=== PATIENT | male | born 1985 | race Caucasian/White ===

== ENCOUNTER 2023-11-26 19:23 | Inpatient (IN) | payer BC ==
[2023-11-26 20:02] VITALS: BMI 23.5
[2023-11-26] MEDS ORDERED: MAG HYDROX/AL HYDROX/SIMETH 30 ML UNIT-DOSE CUP PO PRN (21:03)
[2023-11-26] MEDS ORDERED: NICOTINE POLACRILEX 2 MG GUM BUC PRN (21:03)
[2023-11-26] MEDS ORDERED: POLYETHYLENE GLYCOL (HEALTHYLAX) 3350 17 GM PACKET PO PRN (21:03)
[2023-11-26] MEDS ORDERED: BISMUTH SUBSALICYLATE 524 MG/30 ML PO PRN (21:03)
[2023-11-26] MEDS ORDERED: LOPERAMIDE HCL 2 MG CAPSULE PO PRN (21:03)
[2023-11-26] MEDS ORDERED: BENZOCAINE/MENTHOL (CHLORASEPTIC ) LOZENGE MM PRN (21:03)
[2023-11-26] MEDS ORDERED: NALOXONE HCL 0.4 MG/ML VIAL IM PRN (21:03)
[2023-11-26] MEDS ORDERED: MAGNESIUM HYDROX 2400MG/30ML ORAL SUSPENSION 30 ML CUP PO PRN (21:03)
[2023-11-26] MEDS ORDERED: BENZONATATE 200 MG CAPSULE PO PRN (21:03)
[2023-11-26] MEDS ORDERED: IBUPROFEN 400 MG TABLET (FP) PO PRN (21:03)
[2023-11-26] MEDS ORDERED: DICYCLOMINE HCL 10 MG CAPSULE PO PRN (21:03)
[2023-11-26] MEDS ORDERED: NALOXONE HCL (KLOXXADO) 8 MG SPRAY NS PRN (21:03)
[2023-11-26] MEDS ORDERED: guaiFENesin 600 MG TABLET.ER (FP) PO PRN (21:03)
[2023-11-26] MEDS ORDERED: methaDONE HCL 10 MG TABLET (FOR DETOX USE ONLY) ONE (21:26)
[2023-11-26] MEDS: methaDONE HCL 10 MG TABLET (FOR DETOX USE ONLY) PO ONE (21:51)
[2023-11-26] MEDS: cloNIDine HCL 0.1 MG TABLET PO PRN (22:28)
[2023-11-26] MEDS: hydrOXYzine PAMOATE 25 MG CAPSULE (FP) PO PRN (22:28)
[2023-11-26] MEDS: METHOCARBAMOL 500 MG TABLET PO PRN (22:28)
[2023-11-26] MEDS: diazePAM 5 MG TABLET PO SCH (22:28)
[2023-11-26] MEDS: THIAMINE HCL 100 MG TABLET (FP) PO SCH (22:29)
[2023-11-26] MEDS: MELATONIN 5 MG TABLETS PO SCH (22:29)
[2023-11-26] MEDS: ACETAMINOPHEN 325 MG TABLET (FP) PO PRN (22:35)
[2023-11-27] MEDS: ONDANSETRON *ODT* 4 MG TABLET SL PRN (05:31)
[2023-11-27] MEDS: diazePAM 5 MG TABLET PO PRN (06:47)
[2023-11-27] MEDS: IBUPROFEN 600 MG TABLET (FP) PO PRN (06:47)
[2023-11-27] MEDS: NICOTINE 14 MG/24 HOURS TOPICAL PATCH TD SCH (09:08)
[2023-11-27] MEDS: PRENATAL VITAMINS W/ FOLIC ACID TABLET (FP) PO SCH (09:08)
[2023-11-27 11:58] LABS: HEMATOCRIT 40.2 % (35.4-49); HEMOGLOBIN 14.2 GM/dL (11.7-16.9); MCH 32.6 pg (25.7-33.7); MCHC 35.4 g/dl (32.0-35.9); MEAN PLT VOLUME 8.5 fl (7.5-11.1); PLATELET COUNT 256 10^3/uL (134-434); RBC 4.37 M/mm3 (4.00-5.60); RDW 12.9 % (11.9-15.9); WHITE BLOOD COUNT 6.3 K/mm3 (4.0-10.0)
[2023-11-27 12:48] LABS: CHLORIDE 103 mmol/L (98-107); POTASSIUM 4.2 mmol/L (3.5-5.1); SODIUM 140 mmol/L (136-145)
[2023-11-27 12:56] LABS: BLOOD UREA NITROGEN 18.4 mg/dL (7-18)
[2023-11-27 12:57] LABS: ANION GAP 10 mmol/L (4-13); CO2 27 mmol/L (21-32); GLUCOSE,RANDOM 122 mg/dL (74-106)
[2023-11-27 12:59] LABS: SGPT/ALT 43 U/L (13-61)
[2023-11-27 13:00] LABS: CREATININE 0.8 mg/dL (0.55-1.3); SGOT/AST 23 U/L (15-37)
[2023-11-27 13:01] LABS: BILIRUBIN,TOTAL 0.2 mg/dL (0.2-1); TOT PROT 7.2 g/dl (6.4-8.2)
[2023-11-27 13:02] LABS: ALK PHOS 97 U/L (45-117)
[2023-11-27] MEDS: SUVOREXANT 10 MG TABLET PO PRN (22:21)
[2023-11-28] MEDS: diazePAM 5 MG TABLET PO SCH (05:43)
[2023-11-28] MEDS: methaDONE HCL 10 MG TABLET (FOR DETOX USE ONLY) PO ONE (09:16)
[2023-11-29] MEDS: diazePAM 5 MG TABLET PO SCH (05:41)
[2023-11-29] MEDS: cloNIDine HCL 0.1 MG TABLET PO PRN (11:46)
[2023-11-29] MEDS: GABAPENTIN 100 MG CAPSULE PO ONE (18:11)
[2023-11-30] MEDS: diazePAM 5 MG TABLET PO ONE ×3 (06:05→22:08)
[2023-11-30] MEDS: methaDONE HCL 10 MG TABLET (FOR DETOX USE ONLY) PO ONE (09:16)
[2023-11-30] MEDS: GABAPENTIN 100 MG CAPSULE PO ONE (10:43)
[2023-12-01 09:05] VITALS: BP 104/63; PULSE 62; RESP 18; TEMP 97.1
== END 2023-12-01 09:28 | disposition home or self-care (01) | DRG 773 ==
LOC: YASAS 19:23 → Y6N 21:56
PROVIDERS: ADMIT Allergy & Immunology; ATTEND Surgery
PROC: HZ2ZZZZ Detoxification Services for Substance Abuse Treatment (ICD-10-PCS; principal; 2023-11-26)
DX: F11.23 Opioid dependence with withdrawal (principal); F10.230 Alcohol dependence with withdrawal, uncomplicated; F13.230 Sedative, hypnotic or anxiolytic dependence with withdrawal, uncomplicated; F14.20 Cocaine dependence, uncomplicated; F12.20 Cannabis dependence, uncomplicated; F17.210 Nicotine dependence, cigarettes, uncomplicated; F19.282 Other psychoactive substance dependence with psychoactive substance-induced sleep disorder; F19.280 Other psychoactive substance dependence with psychoactive substance-induced anxiety disorder; F19.24 Other psychoactive substance dependence with psychoactive substance-induced mood disorder; Z62.810 Personal history of physical and sexual abuse in childhood; Z63.8 Other specified problems related to primary support group
CPT/HCPCS: 36415; 80053; 80305; 80307; 85027; 86780; 87635; 93005; 93010; Q0162

== ENCOUNTER 2024-06-13 11:47 | Inpatient (IN) | payer OTHER ==
[2024-06-13 12:11] VITALS: BMI 24.1
[2024-06-13] MEDS ORDERED: NALOXONE HCL 0.4 MG/ML VIAL IM PRN (12:41)
[2024-06-13] MEDS ORDERED: POLYETHYLENE GLYCOL (HEALTHYLAX) 3350 17 GM PACKET PO PRN (12:41)
[2024-06-13] MEDS ORDERED: DICYCLOMINE HCL 10 MG CAPSULE PO PRN (12:41)
[2024-06-13] MEDS ORDERED: NALOXONE (NARCAN) HCL 4 MG/0.1 ML SPRAY NS PRN (12:41)
[2024-06-13] MEDS ORDERED: BISMUTH SUBSALICYLATE 524 MG/30 ML PO PRN (12:41)
[2024-06-13] MEDS ORDERED: BENZONATATE 200 MG CAPSULE PO PRN (12:41)
[2024-06-13] MEDS ORDERED: BENZOCAINE/MENTHOL (CHLORASEPTIC ) LOZENGE MM PRN (12:41)
[2024-06-13] MEDS ORDERED: guaiFENesin 600 MG TABLET.ER (FP) PO PRN (12:41)
[2024-06-13] MEDS ORDERED: MAGNESIUM HYDROX 2400MG/30ML ORAL SUSPENSION 30 ML CUP PO PRN (12:41)
[2024-06-13] MEDS ORDERED: MAG HYDROX/AL HYDROX/SIMETH 30 ML UNIT-DOSE CUP PO PRN (12:41)
[2024-06-13] MEDS ORDERED: diazePAM 5 MG TABLET ONE (13:13)
[2024-06-13] MEDS: NICOTINE 21 MG/24 HOURS TOPICAL PATCH TD SCH (13:14)
[2024-06-13] MEDS: diazePAM 5 MG TABLET PO PRN (13:14)
[2024-06-13] MEDS ORDERED: NICOTINE 21 MG/24 HOURS TOPICAL PATCH ONE (13:14)
[2024-06-13] MEDS ORDERED: HYDROCORTISONE 1% TOPICAL CREAM 30 GM TUBE TP PRN (13:31)
[2024-06-13] MEDS ORDERED: IBUPROFEN 600 MG TABLET (FP) PO ONE (13:50)
[2024-06-13] MEDS ORDERED: cloNIDine HCL 0.1 MG TABLET ONE (13:50)
[2024-06-13] MEDS: IBUPROFEN 600 MG TABLET (FP) PO PRN (13:52)
[2024-06-13] MEDS: cloNIDine HCL 0.1 MG TABLET PO PRN (13:52)
[2024-06-13] MEDS: LOPERAMIDE HCL 2 MG CAPSULE PO PRN (15:25)
[2024-06-13] MEDS: ONDANSETRON *ODT* 4 MG TABLET SL PRN (15:26)
[2024-06-13] MEDS: hydrOXYzine PAMOATE 25 MG CAPSULE (FP) PO PRN (17:02)
[2024-06-13] MEDS: diazePAM 5 MG TABLET PO SCH (17:04)
[2024-06-13] MEDS: ACETAMINOPHEN 325 MG TABLET (FP) PO PRN (17:09)
[2024-06-13] MEDS: METHOCARBAMOL 500 MG TABLET PO PRN (19:02)
[2024-06-13] MEDS: THIAMINE 100 MG TABLET PO SCH (23:03)
[2024-06-13] MEDS: MELATONIN 5 MG TABLETS PO SCH (23:03)
[2024-06-14] MEDS: methaDONE HCL 40 MG DISPERSABLE TABLET PO SCH ×2 (09:00→09:24)
[2024-06-14] MEDS: LORazepam 2 MG TABLET PO SCH (10:05)
[2024-06-14] MEDS: PRENATAL VITAMINS W/ FOLIC ACID TABLET (FP) PO SCH (10:05)
[2024-06-14] MEDS: LORazepam 1 MG TABLET PO PRN (13:21)
[2024-06-14] MEDS: IBUPROFEN 400 MG TABLET (FP) PO PRN (19:59)
[2024-06-14] MEDS: SUVOREXANT 10 MG TABLET PO PRN (22:27)
[2024-06-15] MEDS ORDERED: diazePAM 5 MG TABLET PO SCH (06:00)
[2024-06-15] MEDS: GABAPENTIN 100 MG CAPSULE PO ONE (11:08)
[2024-06-15] MEDS: GABAPENTIN 100 MG CAPSULE PO SCH (13:14)
[2024-06-15 17:26] LABS: CHLORIDE 104 mmol/L (98-107); POTASSIUM 4.6 mmol/L (3.5-5.1); SODIUM 138 mmol/L (136-145)
[2024-06-15 17:28] LABS: ALBUMIN 4.2 g/dl (3.4-5.0); ANION GAP 6 mmol/L (4-13); BLOOD UREA NITROGEN 16.6 mg/dL (7-18); CALCIUM 9.7 mg/dL (8.5-10.1); CO2 28 mmol/L (21-32); GLUCOSE,RANDOM 104 mg/dL (74-106)
[2024-06-15 17:31] LABS: CREATININE 0.9 mg/dL (0.55-1.3); SGOT/AST 25 U/L (15-37); SGPT/ALT 41 U/L (13-61)
[2024-06-15 17:33] LABS: BILIRUBIN,TOTAL 0.2 mg/dL (0.2-1)
[2024-06-15 17:34] LABS: ALK PHOS 63 U/L (45-117)
[2024-06-16] MEDS: LORazepam 1 MG TABLET PO SCH (05:16)
[2024-06-16] MEDS ORDERED: diazePAM 5 MG TABLET PO SCH (06:00)
[2024-06-16] MEDS: cloNIDine HCL 0.1 MG TABLET PO PRN (09:32)
[2024-06-16] MEDS: GABAPENTIN 100 MG CAPSULE PO SCH (14:02)
[2024-06-17] MEDS: LORazepam 0.5 MG TABLET PO SCH (05:25)
[2024-06-17] MEDS ORDERED: diazePAM 5 MG TABLET PO ONE (06:00)
[2024-06-17] MEDS: LORazepam 0.5 MG TABLET PO PRN (20:04)
[2024-06-18] MEDS: LORazepam 0.5 MG TABLET PO ONE ×2 (05:43→18:47)
[2024-06-18] MEDS: hydrOXYzine PAMOATE 50 MG CAPSULE (FP) PO PRN (21:11)
[2024-06-19] MEDS: cloNIDine HCL 0.1 MG TABLET PO PRN (11:15)
[2024-06-19] MEDS: GABAPENTIN 300 MG CAPSULE PO SCH (14:11)
[2024-06-19] MEDS: hydrOXYzine PAMOATE 50 MG CAPSULE (FP) PO PRN (17:05)
[2024-06-19] MEDS: METHOCARBAMOL 500 MG TABLET PO PRN (17:59)
[2024-06-19] MEDS: SULFAMETHOXAZOLE/TRIMETHOPRIM 800MG/160MG D.S. TABLET PO SCH (22:13)
[2024-06-20] MEDS: LORazepam 0.5 MG TABLET PO ONE (11:41)
[2024-06-20] MEDS: cloNIDine HCL 0.1 MG TABLET PO PRN (11:41)
[2024-06-20 12:45] VITALS: BP 103/58; PULSE 79; RESP 16; TEMP 97.1
== END 2024-06-20 15:00 | disposition other institution (70) | DRG 773 ==
LOC: YASAS 11:47 → Y6N 13:56
PROVIDERS: ADMIT Allergy & Immunology; ATTEND Surgery
PROC: HZ2ZZZZ Detoxification Services for Substance Abuse Treatment (ICD-10-PCS; principal; 2024-06-13)
DX: F10.230 Alcohol dependence with withdrawal, uncomplicated (principal); F11.20 Opioid dependence, uncomplicated; F14.20 Cocaine dependence, uncomplicated; F12.20 Cannabis dependence, uncomplicated; F17.210 Nicotine dependence, cigarettes, uncomplicated; L02.413 Cutaneous abscess of right upper limb
CPT/HCPCS: 36415; 80053; 80305; 80307; 86780; 87811; 93005; 93010; Q0162

== ENCOUNTER 2024-06-20 14:38 | Inpatient (IN) | payer OTHER ==
[~2024-06-20 14:38] MED LIST: BENZOCAINE/MENTHOL (CHLORASEPTIC ) LOZENGE MM PRN; BENZONATATE 200 MG CAPSULE PO PRN; LOPERAMIDE HCL 2 MG CAPSULE PO PRN; MAGNESIUM HYDROX 2400MG/30ML ORAL SUSPENSION 30 ML CUP PO PRN; NALOXONE (NARCAN) HCL 4 MG/0.1 ML SPRAY NS PRN; NALOXONE HCL 0.4 MG/ML VIAL IM PRN; NICOTINE POLACRILEX 4 MG GUM BUC PRN; POLYETHYLENE GLYCOL (HEALTHYLAX) 3350 17 GM PACKET PO PRN; guaiFENesin 600 MG TABLET.ER (FP) PO PRN
[2024-06-20] MEDS: GABAPENTIN 300 MG CAPSULE PO SCH (15:44)
[2024-06-20] MEDS: IBUPROFEN 600 MG TABLET (FP) PO PRN (16:34)
[2024-06-20] MEDS: hydrOXYzine PAMOATE 25 MG CAPSULE (FP) PO PRN (17:25)
[2024-06-20] MEDS: THIAMINE 100 MG TABLET PO SCH (21:26)
[2024-06-20] MEDS: MELATONIN 5 MG TABLETS PO SCH (21:27)
[2024-06-20] MEDS: SULFAMETHOXAZOLE/TRIMETHOPRIM 800MG/160MG D.S. TABLET PO SCH (21:29)
[2024-06-21] MEDS: methaDONE HCL 40 MG DISPERSABLE TABLET PO SCH (06:14)
[2024-06-21] MEDS: ACETAMINOPHEN 325 MG TABLET (FP) PO PRN ×2 (06:15→21:07)
[2024-06-21] MEDS: PRENATAL VITAMINS W/ FOLIC ACID TABLET (FP) PO SCH (10:14)
[2024-06-21] MEDS: NICOTINE 21 MG/24 HOURS TOPICAL PATCH TD SCH (10:14)
[2024-06-21] MEDS: QUEtiapine FUMARATE 50 MG TABLET PO SCH (12:00)
[2024-06-21] MEDS: MAG HYDROX/AL HYDROX/SIMETH 30 ML UNIT-DOSE CUP PO PRN (12:29)
[2024-06-21] MEDS: GABAPENTIN 400 MG CAPSULE PO SCH (14:06)
[2024-06-21] MEDS: hydrOXYzine PAMOATE 50 MG CAPSULE (FP) PO PRN (16:56)
[2024-06-21] MEDS: IBUPROFEN 600 MG TABLET (FP) PO PRN (16:57)
[2024-06-21] MEDS: QUEtiapine FUMARATE 100 MG TABLET (FP) PO SCH (21:05)
[2024-06-21] MEDS: cloNIDine HCL 0.1 MG TABLET PO SCH (21:05)
[2024-06-21] MEDS: BACLOFEN 10 MG TABLET (FP) PO SCH (21:05)
[2024-06-21] MEDS: CLINDAMYCIN PHOSPHATE 1% TOPICAL GEL 30 GM TUBE TP SCH (21:06)
[2024-06-22] MEDS: IBUPROFEN 400 MG TABLET (FP) PO PRN (10:18)
[2024-06-22] MEDS: GABAPENTIN 300 MG CAPSULE PO SCH (21:12)
[2024-06-24 07:15] VITALS: RESP 17
[2024-06-24 12:44] VITALS: BP 120/72; PULSE 84; TEMP 97.9
== END 2024-06-25 01:30 | disposition short-term general hospital (02) | DRG 772 ==
LOC: YASAS 14:38 → Y3E 14:40
PROVIDERS: ADMIT Psychiatry & Neurology Pain Medicine; ATTEND Psychiatry & Neurology Pain Medicine
PROC: HZ42ZZZ Group Counseling for Substance Abuse Treatment, Cognitive-Behavioral (ICD-10-PCS; principal; 2024-06-20)
DX: F11.20 Opioid dependence, uncomplicated (principal); F10.20 Alcohol dependence, uncomplicated; F13.20 Sedative, hypnotic or anxiolytic dependence, uncomplicated; F14.20 Cocaine dependence, uncomplicated; F12.20 Cannabis dependence, uncomplicated; F17.210 Nicotine dependence, cigarettes, uncomplicated; F19.280 Other psychoactive substance dependence with psychoactive substance-induced anxiety disorder; F19.282 Other psychoactive substance dependence with psychoactive substance-induced sleep disorder; F32.A Depression, unspecified; F41.9 Anxiety disorder, unspecified; I10 Essential (primary) hypertension; L03.114 Cellulitis of left upper limb; R60.0 Localized edema
CPT/HCPCS: J0475

== ENCOUNTER 2024-06-24 13:33 | Inpatient (IN) | payer OTHER ==
[2024-06-24] MEDS ORDERED: KETOROLAC TROMETHAMINE 15 MG/ML VIAL ONE (15:14)
[2024-06-24] MEDS ORDERED: VANCOMYCIN/WATER 1250 MG 1,250 MG/250 ML BAG IVPB ONE (15:14)
[2024-06-24] MEDS: KETOROLAC TROMETHAMINE 15 MG/ML VIAL IVPUSH ONE (15:18)
[2024-06-24 15:29] LABS: BASO % 0.7 % (0-2.0); EOS % 3.6 % (0-4.5); HEMATOCRIT 26.2 % (35.4-49); HEMOGLOBIN 9.1 GM/dL (11.7-16.9); LYMPH % 18.4 % (8-40); MCH 32.1 pg (25.7-33.7); MCHC 34.6 g/dl (32.0-35.9); MEAN CELL VOLUME 92.7 fl (80-96); MEAN PLT VOLUME 7.7 fl (7.5-11.1); MONO % 13.7 % (3.8-10.2); NEUT % 63.6 % (42.8-82.8); PLATELET COUNT 205 10^3/uL (134-434); RBC 2.83 M/mm3 (4.00-5.60); RDW 13.1 % (11.9-15.9); WHITE BLOOD COUNT 5.9 K/mm3 (4.0-10.0)
[2024-06-24] MEDS ORDERED: GABAPENTIN 300 MG CAPSULE ONE ×2 (15:31→20:58)
[2024-06-24] MEDS: GABAPENTIN 300 MG CAPSULE PO ONE (15:34)
[2024-06-24] MEDS: VANCOMYCIN/WATER 1250 MG 1,250 MG/250 ML BAG IVPB ONE (15:41)
[2024-06-24 15:57] LABS: POTASSIUM 4.7 mmol/L (3.5-5.1)
[2024-06-24 15:59] LABS: CALCIUM 9.3 mg/dL (8.5-10.1)
[2024-06-24 16:00] LABS: ALBUMIN 3.6 g/dl (3.4-5.0); BLOOD UREA NITROGEN 12.9 mg/dL (7-18)
[2024-06-24 16:05] LABS: BILIRUBIN,TOTAL 0.2 mg/dL (0.2-1)
[2024-06-24 16:07] LABS: TOT PROT 6.6 g/dl (6.4-8.2)
[2024-06-24] MEDS ORDERED: LORazepam 1 MG TABLET ONE (17:27)
[2024-06-24] MEDS: LORazepam 1 MG TABLET PO PRN (17:30)
[2024-06-24] MEDS ORDERED: PIPERACILLIN/TAZOB 3.375 GM 3.375 GM/50 ML BAG IVPB ONE (18:16)
[2024-06-24] MEDS: PIPERACILLIN/TAZOB 3.375 GM 3.375 GM in DEXTROSE 5%-WATER - 50 ML IVPB SCH (18:38)
[2024-06-24] MEDS ORDERED: hydrOXYzine PAMOATE 25 MG CAPSULE (FP) PO ONE (19:59)
[2024-06-24] MEDS: hydrOXYzine PAMOATE 25 MG CAPSULE (FP) PO ONE (20:06)
[2024-06-24] MEDS ORDERED: QUEtiapine FUMARATE 100 MG TABLET (FP) ONE (20:59)
[2024-06-24] MEDS: GABAPENTIN 300 MG CAPSULE PO SCH (21:03)
[2024-06-24] MEDS: QUEtiapine FUMARATE 100 MG TABLET (FP) PO SCH (21:03)
[2024-06-24] MEDS: cloNIDine HCL 0.1 MG TABLET PO ONE (21:07)
[2024-06-25] MEDS ORDERED: PIPERACILLIN/TAZOB 3.375 GM 3.375 GM/50 ML BAG IVPB ONE ×2 (01:06→09:11)
[2024-06-25] MEDS ORDERED: ACETAMINOPHEN INJECTION 100 ML ONE (03:16)
[2024-06-25] MEDS: ACETAMINOPHEN 1000 MG/100 ML BAG IVPB PRN (03:25)
[2024-06-25] MEDS: VANCOMYCIN/WATER 1250 MG 1,250 MG/250 ML BAG IVPB SCH ×2 (03:33→15:06)
[2024-06-25] MEDS ORDERED: GABAPENTIN 300 MG CAPSULE ONE ×2 (04:59→14:23)
[2024-06-25] MEDS ORDERED: LORazepam 1 MG TABLET ONE ×3 (04:59→17:37)
[2024-06-25] MEDS ORDERED: methaDONE HCL 40 MG DISPERSABLE TABLET ONE (05:07)
[2024-06-25] MEDS: methaDONE HCL 40 MG DISPERSABLE TABLET PO SCH (05:11)
[2024-06-25 08:41] LABS: HEMATOCRIT 25.3 % (35.4-49); HEMOGLOBIN 8.7 GM/dL (11.7-16.9); MCH 32.2 pg (25.7-33.7); MCHC 34.6 g/dl (32.0-35.9); MEAN CELL VOLUME 92.9 fl (80-96); MEAN PLT VOLUME 7.6 fl (7.5-11.1); PLATELET COUNT 206 10^3/uL (134-434); RBC 2.72 M/mm3 (4.00-5.60)
[2024-06-25 08:52] LABS: POTASSIUM 4.9 mmol/L (3.5-5.1)
[2024-06-25 08:57] LABS: BLOOD UREA NITROGEN 15.2 mg/dL (7-18); CALCIUM 9.7 mg/dL (8.5-10.1)
[2024-06-25 09:00] LABS: CREATININE 1.1 mg/dL (0.55-1.3)
[2024-06-25] MEDS ORDERED: QUEtiapine FUMARATE 25 MG TABLET ONE (09:11)
[2024-06-25] MEDS ORDERED: KETOROLAC TROMETHAMINE 30 MG/1 ML VIAL ONE ×2 (09:11→18:20)
[2024-06-25] MEDS: KETOROLAC TROMETHAMINE 30 MG/1 ML VIAL IVPUSH PRN (09:19)
[2024-06-25] MEDS: QUEtiapine FUMARATE 50 MG TABLET PO ONE (09:20)
[2024-06-25] MEDS: ENOXAPARIN NA (PORCINE) 40 MG/0.4 ML DISP.SYRIN SQ SCH (09:20)
[2024-06-25] MEDS: LORazepam 1 MG TABLET PO PRN (11:35)
[2024-06-25 12:10] LABS: HIV INTERPRETATION NEGATIVE (NEGATIVE)
[2024-06-25] MEDS ORDERED: DIPHTH,PERTUSS(ACELL),TET 0.5 ML DISP.SYRIN IM ONE (14:23)
[2024-06-25] MEDS: DIPHTH,PERTUSS(ACELL),TET 0.5 ML DISP.SYRIN IM ONE ×2 (14:27→14:28)
[2024-06-25] MEDS ORDERED: VANCOMYCIN/WATER 1250 MG 1,250 MG/250 ML BAG IVPB ONE (14:45)
[2024-06-25] MEDS ORDERED: CEFEPIME HCL 1 GM VIAL (RESTRICTED TO ID) IVPB SCH (16:00)
[2024-06-25] MEDS ORDERED: CEFEPIME 1 GM/100 ML BAG IVPB ONE (17:38)
[2024-06-25] MEDS: CEFEPIME 1 GM in DEXTROSE 5%-WATER 100 ML IVPB SCH (17:43)
[2024-06-25] MEDS: QUEtiapine FUMARATE 100 MG TABLET (FP) PO SCH (21:08)
[2024-06-26] MEDS: TRIMETHOBENZAMIDE HCL 200MG/2ML INJ IM ONE (01:18)
[2024-06-26] MEDS: PIPERACILLIN/TAZOB 3.375 GM 3.375 GM in DEXTROSE 5%-WATER - 50 ML IVPB SCH (08:02)
[2024-06-26 08:14] VITALS: BMI 27.3
[2024-06-26 09:41] LABS: BASO % 1.4 % (0-2.0); EOS % 6.1 % (0-4.5); HEMATOCRIT 27.7 % (35.4-49); HEMOGLOBIN 9.5 GM/dL (11.7-16.9); LYMPH % 27.4 % (8-40); MCH 31.5 pg (25.7-33.7); MCHC 34.2 g/dl (32.0-35.9); MEAN CELL VOLUME 92.2 fl (80-96); MEAN PLT VOLUME 7.5 fl (7.5-11.1); NEUT % 53.1 % (42.8-82.8); PLATELET COUNT 217 10^3/uL (134-434); RBC 3.01 M/mm3 (4.00-5.60); RDW 13.1 % (11.9-15.9); WHITE BLOOD COUNT 4.6 K/mm3 (4.0-10.0)
[2024-06-26 09:55] LABS: POTASSIUM 4.7 mmol/L (3.5-5.1)
[2024-06-26 10:06] LABS: ALBUMIN 3.6 g/dl (3.4-5.0); BLOOD UREA NITROGEN 18.5 mg/dL (7-18); CALCIUM 9.9 mg/dL (8.5-10.1); MAGNESIUM 1.9 mg/dL (1.8-2.4)
[2024-06-26 10:09] LABS: CREATININE 0.9 mg/dL (0.55-1.3)
[2024-06-26 10:10] LABS: BILIRUBIN,TOTAL 0.4 mg/dL (0.2-1)
[2024-06-26] MEDS: ACETAMINOPHEN 325 MG TABLET (FP) PO PRN (11:39)
[2024-06-27 11:54] LABS: BASO % 2.1 % (0-2.0); EOS % 7.4 % (0-4.5); HEMATOCRIT 31.2 % (35.4-49); HEMOGLOBIN 10.6 GM/dL (11.7-16.9); LYMPH % 38.1 % (8-40); MCH 31.6 pg (25.7-33.7); MCHC 34.1 g/dl (32.0-35.9); MEAN CELL VOLUME 92.6 fl (80-96); MEAN PLT VOLUME 7.6 fl (7.5-11.1); MONO % 14.8 % (3.8-10.2); NEUT % 37.6 % (42.8-82.8); PLATELET COUNT 291 10^3/uL (134-434); RBC 3.37 M/mm3 (4.00-5.60); RDW 12.9 % (11.9-15.9); WHITE BLOOD COUNT 4.8 K/mm3 (4.0-10.0)
[2024-06-27 12:14] LABS: POTASSIUM 4.6 mmol/L (3.5-5.1)
[2024-06-27 12:18] LABS: ALBUMIN 4.1 g/dl (3.4-5.0); BLOOD UREA NITROGEN 23.1 mg/dL (7-18)
[2024-06-27 12:19] LABS: CALCIUM 9.9 mg/dL (8.5-10.1)
[2024-06-27 12:23] LABS: BILIRUBIN,TOTAL 0.3 mg/dL (0.2-1); TOT PROT 7.9 g/dl (6.4-8.2)
[2024-06-27] MEDS: ACETAMINOPHEN 1000 MG/100 ML BAG IVPB ONE (15:40)
[2024-06-27] MEDS: clonazePAM 2 MG TABLET PO ONE (16:11)
[2024-06-27] MEDS: KETOROLAC TROMETHAMINE 30 MG/1 ML VIAL IVPUSH ONE (16:11)
[2024-06-27] MEDS: clonazePAM 2 MG TABLET PO PRN (21:24)
[2024-06-27 22:11] VITALS: RESP 18
[2024-06-28 09:04] LABS: BASO % 1.9 % (0-2.0); EOS % 8.1 % (0-4.5); HEMOGLOBIN 9.2 GM/dL (11.7-16.9); LYMPH % 40.1 % (8-40); MCH 31.5 pg (25.7-33.7); MEAN CELL VOLUME 92.8 fl (80-96); MEAN PLT VOLUME 7.2 fl (7.5-11.1); MONO % 12.2 % (3.8-10.2); NEUT % 37.7 % (42.8-82.8); PLATELET COUNT 231 10^3/uL (134-434); RBC 2.91 M/mm3 (4.00-5.60); RDW 12.7 % (11.9-15.9); WHITE BLOOD COUNT 4.1 K/mm3 (4.0-10.0)
[2024-06-28 09:17] LABS: POTASSIUM 4.5 mmol/L (3.5-5.1)
[2024-06-28 09:26] LABS: CALCIUM 9.4 mg/dL (8.5-10.1)
[2024-06-28 09:27] LABS: ALBUMIN 3.6 g/dl (3.4-5.0); BLOOD UREA NITROGEN 26.9 mg/dL (7-18); MAGNESIUM 2.1 mg/dL (1.8-2.4)
[2024-06-28 09:30] LABS: CREATININE 0.8 mg/dL (0.55-1.3)
[2024-06-28 09:31] LABS: BILIRUBIN,TOTAL 0.4 mg/dL (0.2-1); TOT PROT 6.9 g/dl (6.4-8.2)
[2024-06-28 10:53] VITALS: BP 110/70; PULSE 80; TEMP 97.8
[2024-06-28] MEDS: NICOTINE 14 MG/24 HOURS TOPICAL PATCH TD SCH (11:57)
== END 2024-06-28 14:55 | disposition left against medical advice (07) | DRG 383 ==
LOC: JER 13:33 → JERBED 15:02 → OBSVTOIN 06-25 15:57 → J6S 06-25 18:29
PROVIDERS: ADMIT Internal Medicine; ATTEND Internal Medicine
PROC: 0X970ZZ Drainage of Left Upper Extremity, Open Approach (ICD-10-PCS; principal; 2024-06-26)
DX: L03.114 Cellulitis of left upper limb (principal); L02.414 Cutaneous abscess of left upper limb; F11.20 Opioid dependence, uncomplicated; D64.9 Anemia, unspecified; F19.20 Other psychoactive substance dependence, uncomplicated; F41.8 Other specified anxiety disorders; Z59.00 Homelessness unspecified; B95.62 Methicillin resistant Staphylococcus aureus infection as the cause of diseases classified elsewhere; Z86.19 Personal history of other infectious and parasitic diseases
CPT/HCPCS: 36415; 73060-TC-LT-FY; 73090-TC-LT-FY; 80048; 80053; 83735; 85025; 85027; 87040; 87070; 87081; 87186; 87205; 87389; 87522; 90715; 93005; 93010; 93306-TC; 99285-25; G0378; G0480; J0131

== ENCOUNTER 2024-06-30 09:34 | Emergency (ER) | payer OTHER ==
[2024-06-30 10:41] VITALS: BP 107/64; PULSE 86; RESP 20; TEMP 98.5; BMI 26.2
[2024-06-30] MEDS ORDERED: methaDONE HCL 40 MG DISPERSABLE TABLET ONE (11:08)
[2024-06-30] MEDS: methaDONE HCL 40 MG DISPERSABLE TABLET PO ONE (11:16)
== END 2024-06-30 14:29 | disposition home or self-care (01) ==
LOC: JER 09:34
DX: F11.20 Opioid dependence, uncomplicated (principal); R11.0 Nausea
CPT/HCPCS: 99283-25

== ENCOUNTER 2024-06-30 14:36 | Inpatient (IN) | payer OTHER ==
[2024-06-30 15:53] VITALS: BMI 24.7
[2024-06-30] MEDS ORDERED: ASPIRIN 81 MG CHEWABLE TABLETS ONE (17:29)
[2024-06-30] MEDS: ASPIRIN 81 MG CHEWABLE TABLETS PO ONE (17:31)
[2024-06-30] MEDS ORDERED: LOPERAMIDE HCL 2 MG CAPSULE PO PRN (18:15)
[2024-06-30] MEDS ORDERED: BENZONATATE 200 MG CAPSULE PO PRN (18:15)
[2024-06-30] MEDS ORDERED: MAGNESIUM HYDROX 2400MG/30ML ORAL SUSPENSION 30 ML CUP PO PRN (18:15)
[2024-06-30] MEDS ORDERED: guaiFENesin 600 MG TABLET.ER (FP) PO PRN (18:15)
[2024-06-30] MEDS ORDERED: BENZOCAINE/MENTHOL (CHLORASEPTIC ) LOZENGE MM PRN (18:15)
[2024-06-30] MEDS ORDERED: POLYETHYLENE GLYCOL (HEALTHYLAX) 3350 17 GM PACKET PO PRN (18:15)
[2024-06-30] MEDS ORDERED: NALOXONE (NARCAN) HCL 4 MG/0.1 ML SPRAY NS PRN (18:15)
[2024-06-30] MEDS: ACETAMINOPHEN 325 MG TABLET (FP) PO PRN (19:04)
[2024-06-30] MEDS: cloNIDine HCL 0.1 MG TABLET PO PRN (19:04)
[2024-06-30] MEDS: NALOXONE (NYS OPIOID OVERDOSE PROGRAM) 4 MG/0.1 ML SPRAY NS ONE (19:05)
[2024-06-30] MEDS: THIAMINE 100 MG TABLET PO SCH (21:05)
[2024-06-30] MEDS: MELATONIN 5 MG TABLETS PO SCH (21:05)
[2024-06-30] MEDS: hydrOXYzine PAMOATE 25 MG CAPSULE (FP) PO PRN (21:06)
[2024-06-30] MEDS: QUEtiapine FUMARATE 100 MG TABLET (FP) PO ONE (21:44)
[2024-07-01] MEDS: IBUPROFEN 600 MG TABLET (FP) PO PRN (01:37)
[2024-07-01] MEDS: methaDONE HCL 40 MG DISPERSABLE TABLET PO SCH (05:33)
[2024-07-01] MEDS: PRENATAL VITAMINS W/ FOLIC ACID TABLET (FP) PO SCH (09:36)
[2024-07-01] MEDS: BACITRACIN ZINC 15 GM TUBE TOPICAL OINTMENT TP SCH (09:39)
[2024-07-01] MEDS ORDERED: NALOXONE (NYS OPIOID OVERDOSE PROGRAM) 4 MG/0.1 ML SPRAY NS ONE (13:00)
[2024-07-01] MEDS: GABAPENTIN 300 MG CAPSULE PO SCH (14:05)
[2024-07-01] MEDS ORDERED: NALOXONE (NYS OPIOID OVERDOSE PROGRAM) 4 MG/0.1 ML SPRAY NS PRN (14:30)
[2024-07-01] MEDS: hydrOXYzine PAMOATE 25 MG CAPSULE (FP) PO PRN (20:06)
[2024-07-01] MEDS: QUEtiapine FUMARATE 100 MG TABLET (FP) PO SCH (21:07)
[2024-07-02] MEDS: IBUPROFEN 400 MG TABLET (FP) PO PRN (08:08)
[2024-07-02] MEDS: cloNIDine HCL 0.1 MG TABLET PO ONE (10:12)
[2024-07-02 11:24] LABS: URINE APPEARANCE CLEAR; URINE BILIRUBIN NEGATIVE (NEGATIVE); URINE COLOR YELLOW; URINE GLUCOSE (UA) NEGATIVE (NEGATIVE); URINE KETONE NEGATIVE (NEGATIVE); URINE LEUK ESTERASE NEGATIVE (NEGATIVE); URINE NITRITE NEGATIVE (NEGATIVE); URINE PROTEIN NEGATIVE (NEGATIVE); URINE UROBILINOGEN 0.2 mg/dL (0.2-1.0)
[2024-07-02] MEDS: ASCORBIC ACID 250 MG TABLET (FP) PO SCH (13:16)
[2024-07-02] MEDS: propRANOLol HCL 10 MG TABLET PO PRN (16:30)
[2024-07-02] MEDS: FERROUS SO4 325 MG TABLET (FP) PO SCH (16:34)
[2024-07-03] MEDS: QUEtiapine FUMARATE 50 MG TABLET PO SCH (09:40)
[2024-07-05] MEDS: FLU VACCINE (FLULAVAL) PF 45 MCG/0.5 ML SYRINGE 2024-2025 IM ONE (12:10)
[2024-07-05] MEDS: PNEUMOC 20-VAL CONJ-DIP CRM/PF 0.5 ML SYRINGE IM ONE (12:12)
[2024-07-06] MEDS: ONDANSETRON *ODT* 4 MG TABLET SL PRN (12:33)
[2024-07-07] MEDS: MAG HYDROX/AL HYDROX/SIMETH 30 ML UNIT-DOSE CUP PO PRN (08:36)
[2024-07-07] MEDS: cloNIDine HCL 0.1 MG TABLET PO SCH (17:27)
[2024-07-12] MEDS: NICOTINE 14 MG/24 HOURS TOPICAL PATCH TD SCH (09:57)
[2024-07-15] MEDS: BACLOFEN 10 MG TABLET (FP) PO SCH (21:18)
[2024-07-17] MEDS: BISMUTH SUBSALICYLATE 524 MG/30 ML PO PRN (09:38)
[2024-07-20] MEDS: cloNIDine HCL 0.1 MG TABLET PO SCH (17:29)
[2024-07-26] MEDS: SELENIUM SULFIDE 2.25% 180 ML SHAMPOO TP SCH (16:58)
[2024-07-27 06:47] VITALS: BP 111/68; PULSE 65; RESP 16; TEMP 97.3
[2024-07-27] MEDS: NALOXONE (NYS OPIOID OVERDOSE PROGRAM) 4 MG/0.1 ML SPRAY NS PRN (09:17)
== END 2024-07-27 09:46 | disposition home or self-care (01) | DRG 772 ==
LOC: YASAS 14:36 → Y3W 17:48 → Y3NR 07-05 15:27 → Y3W 07-05 15:28
PROVIDERS: ADMIT Psychiatry & Neurology Pain Medicine; ATTEND Psychiatry & Neurology Pain Medicine
PROC: HZ42ZZZ Group Counseling for Substance Abuse Treatment, Cognitive-Behavioral (ICD-10-PCS; principal; 2024-06-30)
DX: F10.20 Alcohol dependence, uncomplicated (principal); F14.20 Cocaine dependence, uncomplicated; F13.20 Sedative, hypnotic or anxiolytic dependence, uncomplicated; F11.20 Opioid dependence, uncomplicated; F17.210 Nicotine dependence, cigarettes, uncomplicated; F12.20 Cannabis dependence, uncomplicated; F19.280 Other psychoactive substance dependence with psychoactive substance-induced anxiety disorder; F19.282 Other psychoactive substance dependence with psychoactive substance-induced sleep disorder; I10 Essential (primary) hypertension; K29.70 Gastritis, unspecified, without bleeding; L03.114 Cellulitis of left upper limb; Z86.19 Personal history of other infectious and parasitic diseases
CPT/HCPCS: 80305; 80307; 81003; 87811; 90656; 93005; 93010; G0008; J0475; Q0162

== ENCOUNTER 2025-03-15 09:07 | Inpatient (IN) | payer OTHER ==
[2025-03-15 09:30] VITALS: BMI 22.8
[2025-03-15] MEDS ORDERED: BENZOCAINE/MENTHOL (CHLORASEPTIC ) LOZENGE MM PRN (10:21)
[2025-03-15] MEDS ORDERED: DICYCLOMINE HCL 10 MG CAPSULE PO PRN (10:21)
[2025-03-15] MEDS ORDERED: POLYETHYLENE GLYCOL (HEALTHYLAX) 3350 17 GM PACKET PO PRN (10:21)
[2025-03-15] MEDS ORDERED: P-EPHED 60MG/TRIPROLIDI 2.5MG TABLET PO PRN (10:21)
[2025-03-15] MEDS ORDERED: NICOTINE POLACRILEX 2 MG GUM BUC PRN (10:21)
[2025-03-15] MEDS ORDERED: NALOXONE (NARCAN) HCL 4 MG/0.1 ML SPRAY NS PRN (10:21)
[2025-03-15] MEDS ORDERED: guaiFENesin 600 MG TABLET.ER (FP) PO PRN (10:21)
[2025-03-15] MEDS ORDERED: ONDANSETRON *ODT* 4 MG TABLET SL PRN (10:21)
[2025-03-15] MEDS ORDERED: BENZONATATE 200 MG CAPSULE PO PRN (10:21)
[2025-03-15] MEDS ORDERED: diazePAM 5 MG TABLET ONE (11:01)
[2025-03-15] MEDS ORDERED: levETIRAcetam 500 MG TABLET (FP) PO ONE (11:01)
[2025-03-15] MEDS: diazePAM 5 MG TABLET PO SCH (11:03)
[2025-03-15] MEDS: levETIRAcetam 500 MG TABLET (FP) PO SCH (11:03)
[2025-03-15] MEDS ORDERED: ACETAMINOPHEN 325 MG TABLET (FP) ONE (11:14)
[2025-03-15] MEDS: ACETAMINOPHEN 325 MG TABLET (FP) PO PRN (11:15)
[2025-03-15] MEDS: methaDONE HCL 10 MG TABLET (FOR DETOX USE ONLY) PO ONE (11:46)
[2025-03-15] MEDS: cloNIDine HCL 0.1 MG TABLET PO PRN (12:36)
[2025-03-15] MEDS: diazePAM 5 MG TABLET PO PRN (14:44)
[2025-03-15] MEDS: IBUPROFEN 600 MG TABLET (FP) PO PRN (15:36)
[2025-03-15] MEDS: methaDONE HCL 10 MG TABLET PO PRN (15:59)
[2025-03-15] MEDS: BISMUTH SUBSALICYLATE 262 MG/15 ML BTL PO PRN (17:09)
[2025-03-15] MEDS: MAG HYDROX/AL HYDROX/SIMETH 30 ML UNIT-DOSE CUP PO PRN (19:42)
[2025-03-15] MEDS: NICOTINE POLACRILEX 2 MG LOZENGE BC PRN (19:44)
[2025-03-15] MEDS ORDERED: hydrOXYzine PAMOATE 50 MG CAPSULE (FP) PO ONE (19:52)
[2025-03-15] MEDS: THIAMINE 100 MG TABLET PO SCH (22:06)
[2025-03-15] MEDS: QUEtiapine FUMARATE 50 MG TABLET PO ONE (22:06)
[2025-03-15] MEDS: MELATONIN 5 MG TABLETS PO SCH (22:06)
[2025-03-15] MEDS: hydrOXYzine PAMOATE 50 MG CAPSULE (FP) PO ONE (23:17)
[2025-03-16] MEDS: IBUPROFEN 400 MG TABLET (FP) PO PRN (02:54)
[2025-03-16] MEDS: METHOCARBAMOL 500 MG TABLET PO PRN (06:00)
[2025-03-16] MEDS: methaDONE 40 MG, methaDONE 10 MG PO ONE (09:09)
[2025-03-16] MEDS: PRENATAL VITAMINS W/ FOLIC ACID TABLET (FP) PO SCH (09:11)
[2025-03-16] MEDS: NICOTINE 14 MG/24 HOURS TOPICAL PATCH TD SCH (10:05)
[2025-03-16] MEDS: GABAPENTIN 300 MG CAPSULE PO SCH (13:07)
[2025-03-16] MEDS: QUEtiapine FUMARATE 50 MG TABLET PO SCH (21:08)
[2025-03-17] MEDS: diazePAM 5 MG TABLET PO SCH (05:28)
[2025-03-17] MEDS: methaDONE 40 MG, methaDONE 20 MG PO ONE (09:20)
[2025-03-17] MEDS ORDERED: methaDONE HCL 10 MG TABLET (FOR DETOX USE ONLY) PO ONE (10:00)
[2025-03-17] MEDS: hydrOXYzine PAMOATE 25 MG CAPSULE (FP) PO PRN (11:23)
[2025-03-17] MEDS: MAGNESIUM HYDROX 2400MG/30ML ORAL SUSPENSION 30 ML CUP PO PRN (12:22)
[2025-03-17] MEDS: GABAPENTIN 300 MG CAPSULE PO SCH ×2 (14:13→21:38)
[2025-03-18] MEDS: LOPERAMIDE HCL 2 MG CAPSULE PO PRN (03:37)
[2025-03-18] MEDS: diazePAM 5 MG TABLET PO SCH (05:21)
[2025-03-18] MEDS: methaDONE 40 MG, methaDONE 30 MG PO ONE (09:07)
[2025-03-19] MEDS: diazePAM 5 MG TABLET PO ONE (05:30)
[2025-03-19] MEDS: methaDONE HCL 40 MG DISPERSABLE TABLET PO ONE (09:08)
[2025-03-19] MEDS ORDERED: methaDONE HCL 10 MG TABLET (FOR DETOX USE ONLY) PO ONE (10:00)
[2025-03-19] MEDS: cloNIDine HCL 0.1 MG TABLET PO PRN (17:18)
[2025-03-20 08:43] VITALS: BP 100/58; PULSE 76; RESP 16; TEMP 97.1
[2025-03-20] MEDS: methaDONE 80 MG, methaDONE 10 MG PO ONE (09:03)
[2025-03-20 14:07] LABS: COCAINE QUALITATIVE URINE Negative ng/mL (Cutoff=300); MARIJUANA QL URINE CANNABINOID Negative ng/mL (Cutoff=50); METHADONE,QUALITATIVE URINE Positive ng/mL (Cutoff=300); OPIATES QL URINE Negative ng/mL (Cutoff=300); PHENCYCLIDINE,QUAL URINE Negative ng/mL (Cutoff=25); PROPOXYPHENE QL URINE Negative ng/mL (Cutoff=300); URINE AMPHETAMINES Negative ng/mL (Cutoff=1000)
== END 2025-03-20 09:58 | disposition home or self-care (01) | DRG 773 ==
LOC: YASAS 09:07 → Y6N 11:20 → Y3N 03-18 23:00
PROVIDERS: ADMIT Allergy & Immunology; ATTEND Family Medicine Addiction Medicine
PROC: HZ2ZZZZ Detoxification Services for Substance Abuse Treatment (ICD-10-PCS; principal; 2025-03-15)
DX: F11.23 Opioid dependence with withdrawal (principal); F10.230 Alcohol dependence with withdrawal, uncomplicated; F13.230 Sedative, hypnotic or anxiolytic dependence with withdrawal, uncomplicated; F17.210 Nicotine dependence, cigarettes, uncomplicated; F14.20 Cocaine dependence, uncomplicated; F12.20 Cannabis dependence, uncomplicated; F19.282 Other psychoactive substance dependence with psychoactive substance-induced sleep disorder; F19.280 Other psychoactive substance dependence with psychoactive substance-induced anxiety disorder; F19.24 Other psychoactive substance dependence with psychoactive substance-induced mood disorder; F41.9 Anxiety disorder, unspecified; F32.A Depression, unspecified; G47.00 Insomnia, unspecified; Z59.00 Homelessness unspecified; Z56.0 Unemployment, unspecified
CPT/HCPCS: 36415; 80307